=== PATIENT | male | born 1960 | race Caucasian/White ===

== ENCOUNTER 2024-10-08 15:36 | Emergency (ER) | payer MEDICAID, SELFPAY ==
[2024-10-08] VITALS (8 sets, daily range): BP systolic 123–201; BP diastolic 80–103; PULSE 58–83; RESP 14–18; TEMP 36.8–37.1; O2SAT 96–99; BMI 16.4
--- NOTE | 2024-10-08 15:54 | EDNOTE_ITS ---
ED Abdominal Pain RME/HPI General Chief Complaint: Abdominal Pain Stated complaint: ABDOMINAL PAIN Time seen by provider: 10/08/24 16:04 Arrival date/time: 10/08/24 15:36 RME / HPI RME / HPI narrative: 64 year old male with history of Hepatitis A and C ?, chronic pain on Methadone presents to the ED BIBA from home for evaluation of abdominal pain beginning yesterday. Described as burning in sensation located throughout, without radiat ion, rating as moderate. Reportedly over the last 24 hours (beginning at 07:00 AM yesterday 10/07/24) has taken ~ 1,200mg of Methadone due to the pain. No other associated symptoms reported. Denies fevers, chills, sweats. Denies chest pain, cough, shortness of breath. Denies vomiting, diarrhea, constipation. Denies dysuria, urinary frequency and urgency. Patient denies intentionally trying to harm himself. Related Data Previous Rx's ?Medication ?Instructions ?Recorded famotidine 40 mg tablet 40 mg PO BID #60 tabs ondansetron 4 mg disintegrating 4 mg PO TID PRN nausea and 10/08/24 tablet vomiting 30 days #10 tabs Allergies Allergy/AdvReac Type Severity Reaction Status Date / Time No Known Allergies Allergy Verified 10/08/24 16:02 Review of Systems Review of Systems Systems Reviewed: All systems reviewed, normal except as documented Past Medical History Past Medical History NEUROLOGIC: Negative Neurological Disorders CARDIAC: Negative Cardiac Disorders or Congestive Heart Failure RESPIRATORY: Negative Chronic Obstructive Pulmonary Disease (COPD) GASTROINTESTINAL: Negative Gastrointestinal Disorders GENITOURINARY: Negative Renal Disease MUSCULOSKELETAL: Negative Musculoskeletal Disorders ENT: Negative History of ENT Problems ENDOCRINE: Negative Diabetes Mellitus Type 1 or Diabetes Mellitus Type 2 Social History SMOKING STATUS: Former smoker ED Exam Narrative Physical exam: GENERAL APPEARANCE: alert and oriented x 4, well-developed, mild wasting, no acute distress HEENT: Normocephalic, atraumatic; pupils equal, round, reactive to light; EOMI; mucous membranes pink, moist; oropharynx clear NECK: Supple LUNGS: CTABL; no wheezes, no rales, no rhonchi HEART: Regular rate, regular rhythm; normal S1, S2; no murmurs ABDOMEN: non distended; normal BS; soft, no tenderness, no guarding, no rebound; no masses, no organomegaly, no hernia BACK: no CVA tenderness EXTREMITIES: atraumatic; no edema NEUROLOGIC: awake; alert and oriented x4; cranial nerves II-XII grossly intact; no focal sensory or motor deficits PSYCHIATRIC: appropriate mood and affect SKIN: warm, dry, normal color; no rashes Course Course Course Narrative: 1800: Patient signed out to Dr. Langford pending labs and final disposition. Quality Measures none Orders Category Date Time Status Access Developer NOW Care 10/08/24 16:04 Completed EKG (ED ONLY) *Do not use* NOW Care 10/08/24 16:04 Completed EKG (ED Only) Stat Exams 10/08/24 16:04 Ordered Alcohol, Blood Medical Stat Lab 10/08/24 16:35 Completed B-Type Natriuretic Peptide Stat Lab 10/08/24 16:35 Completed CBC Stat Lab 10/08/24 16:35 Completed Comprehensive Metabolic Panel Stat Lab 10/08/24 16:35 Completed Drug Screen,Urine Stat Lab 10/08/24 16:28 Completed Lactate (Lactic Acid) Stat Lab 10/08/24 16:35 Completed Lactic Acid, 3 HR Stat Lab 10/08/24 20:09 Completed Lipase Stat Lab 10/08/24 16:35 Completed Magnesium Stat Lab 10/08/24 16:35 Completed Troponin I Stat Lab 10/08/24 16:35 Completed UA, C/S IF [Urinalysis, C/S if Indicated] Stat Lab 10/08/24 16:28 Completed DiphenhydrAMINE INJ [Benadryl Inj] Med 10/08/24 19:31 Discontinued 50 mg IVP X1 STA Famotidine Inj [Pepcid Inj] Med 10/08/24 19:06 Discontinued 20 mg IVP X1 ONE Lidocaine 2% Viscous [Xylocaine 2% Viscous] Med 10/08/24 16:04 Discontinued 15 ml PO X1 ONE MethylPREDNISolone.* [SoluMEDROL Inj] Med 10/08/24 19:31 Discontinued 125 mg IVP X1 ONE Metoprolol Tartrate [Lopressor] Med 10/08/24 18:48 Discontinued 25 mg PO X1 ONE Ondansetron Inj [Zofran Inj] Med 10/08/24 19:06 Discontinued 4 mg IVP X1 ONE Pantoprazole Inj [Protonix Inj] Med 10/08/24 19:06 Discontinued 40 mg IVP X1 ONE Sodium Chloride 0.9% 1000 ml [Ns] 1,000 ml Med 10/08/24 16:52 Discontinued IV 999 mls/hr cloNIDine HCL [Catapres] Med 10/08/24 19:20 Discontinued 0.2 mg PO X1 ONE cloNIDine HCL [Catapres] Med 10/08/24 18:48 Discontinued 0.3 mg PO X1 ONE mg Hyd/Al Hyd/Bertha Susp [Maalox Susp] Med 10/08/24 16:04 Discontinued 30 ml PO X1 ONE Vital Signs Vital signs: Vital Signs Temperature 98.2 F 10/08/24 15:38 Pulse Rate 74 10/08/24 15:38 Respiratory Rate 16 10/08/24 15:38 Blood Pressure 180/83 H 10/08/24 15:38 Pulse Oximetry (%) 97 10/08/24 15:38 Oxygen Delivery Method Room Air 10/08/24 15:38 Pulse ox is 97% on room air which is adequate. Abdominal Pain MDM MDM Narrative MDM Narrative:: Shanelle Shaw am scribing for and in the presence of Dr. Pillai. Patient data External records reviewed:: EMS form Clinical information provided by:: patient and EMS Social determinants that could affect healthcare access:: none Patient has the following chronic illnesses:: Hepatitis A and C ?, chronic pain on Methadone How is presenting disease/condition affected by chronic disease/condition?: exacerbated by Evaluation data The following diagnostics were reviewed and interpreted by me:: lab results Lab and/or radiology exams considered but not ordered:: None Interpretation Summary: Labs pending during sign out Medications / Prescriptions Medications or Prescriptions considered but not ordered:: None Medication administrations:: Medication Administration History Discontinued Medications Al Hydrox/Mg Hydrox/Simethicone (Mg Hyd/Al Hyd/Bertha (Maalox Reg) Susp 30 Ml Udc) 30 ml PO X1 ONE Stop: 10/08/24 16:05 Last Admin: 10/08/24 16:19 Dose: 30 ml Documented By: DIANE Clonidine (Clonidine Hcl 0.1 Mg Tablet) 0.3 mg PO X1 ONE Stop: 10/08/24 18:49 Last Admin: 10/08/24 19:40 Dose: Not Given Documented By: DT Non-Admin Reason: Cancelled by Provider Clonidine (Clonidine Hcl 0.1 Mg Tablet) 0.2 mg PO X1 ONE Stop: 10/08/24 19:21 Last Admin: 10/08/24 19:41 Dose: 0.2 mg Documented By: DT Diphenhydramine HCl (Diphenhydramine Inj 50 Mg/Ml Vial) 50 mg IVP X1 STA Stop: 10/08/24 19:32 Last Admin: 10/08/24 19:34 Dose: 50 mg Documented By: DT Famotidine (Famotidine Inj 10 Mg/Ml Vial 2 Ml) 20 mg IVP X1 ONE Stop: 10/08/24 19:07 Last Admin: 10/08/24 19:27 Dose: 20 mg Documented By: MARCELA Sodium Chloride (Ns) 1,000 mls @ 999 mls/hr IV .Q1H1M ONE Stop: 10/08/24 17:52 Last Infusion: 10/08/24 18:49 Dose: Infused Documented By: Admin: 10/08/24 17:45 Dose: 999 mls/hr Documented By: BRIAN Lidocaine HCl (Lidocaine Viscous 2% 15 Ml Udc) 15 ml PO X1 ONE Stop: 10/08/24 16:05 Last Admin: 10/08/24 16:19 Dose: 15 ml Documented By: DIANE Methylprednisolone Sodium Succinate (Methylprednisolone Sod Succ 62.5 Mg/Ml 2ml Vial) 125 mg IVP X1 ONE Stop: 10/08/24 19:32 Last Admin: 10/08/24 19:35 Dose: 125 mg Documented By: MARCELA Metoprolol Tartrate (Metoprolol Tartrate 25 Mg Tablet) 25 mg PO X1 ONE Stop: 10/08/24 18:49 Last Admin: 10/08/24 19:30 Dose: 25 mg Documented By: MARCELA Ondansetron HCl (Ondansetron Inj 2 Mg/Ml Inj 2 Ml) 4 mg IVP X1 ONE; Protocol Stop: 10/08/24 19:07 Last Admin: 10/08/24 19:27 Dose: 4 mg Documented By: DT Pantoprazole Sodium (Pantoprazole Inj 40 Mg Vial) 40 mg IVP X1 ONE Stop: 10/08/24 19:07 Last Admin: 10/08/24 19:28 Dose: 40 mg Documented By: DT See above Consultations Consultation(s) initiated? (list below): No Diagnosis Differential diagnosis abdominal pain: abdominal pain and other (gastritis, overdose ) Most likely diagnosis given after review of the tests above:: Abdominal pain Admission Indicated Admission indicated?: not indicated Explain why admission is indicated or not indicated:: Signed out to Dr. Langford pending final disposition. Admission Request Was there a request for admission?: No Disposition Plan Disposition Plan: other (specify) (Signed out to Dr. Langford) Discharge Plan Prescriptions/Referrals Prescriptions/Med Rec: New famotidine 40 mg tablet 40 mg PO BID Qty: 60 0RF ondansetron 4 mg tablet,disintegrating 4 mg PO TID PRN (Reason: nausea and vomiting) 30 Days Qty: 10 0RF Referrals: No Primary/Family,Physician [Primary Care Provider] - In 1 week Problem List Clinical Impression: Abdominal pain, epigastric, Opiate overdose Patient/Caregiver Discharge Instructions Discharge Activity: activity as tolerated Education Materials: ED PEPTIC ULCER vs GASTRITIS Additional Instructions: Discharge instructions from Dr. Langford: ?After evaluation, your symptoms are due to stomach ulcer (see attached handout).? There is no emergency such as appendicitis needing emergent surgery. ?To help heal the ulcer, take Famotidine 40 mg twice daily for a week then as needed. ?Zofran for nausea/vomiting.? Clear liquid diet for 24 hours.? Then slowly advance diet as tolerated. ?Avoid food and beverages that can trigger and worsen ulcers.? See attached handout. ?See a private doctor on 10/10/2024 for recheck and further care. To make sure there is no other serious intra-abdominal condition, ask for help with more investigation not available here in the ER.? Such as EGD or scoping the stomach, colonoscopy or scoping the colon, and referral to see reproduction production manager. Ask to review all test results and official radiology reports, to make sure you receive all necessary follow-ups and monitoring. ?Seek immediate medical care with worsening or with any concerns. Print Language: [place]
[2024-10-08] MEDS: LIDOCAINE VISCOUS 2% 15 ML UDC PO (16:19)
[2024-10-08] MEDS: MG HYD/AL HYD/SIME (Maalox Reg) SUSP 30 ML UDC PO (16:19)
[2024-10-08 16:50] LABS: Collection Type, Urine Clean Catch
[2024-10-08 16:50] LABS: Lactate (Lactic Acid) 3.0 mMol/L (0.4-2.0)
[2024-10-08 16:53] LABS: Basophils # (Auto) 0.0 Thou/mm3 (0.0-0.2); Basophils % (Auto) 0 % (0-2.5); Eosinophils # (Auto) 0.0 Thou/mm3 (0.0-0.5); Eosinophils % (Auto) 0 % (0-10); Hematocrit 46.3 % (41.0-53.0); Hemoglobin 16.1 g/dL (13.5-16.0); Immature Granulocytes Auto 0.02 Thou/mm3 (0.00-0.00); Lymphocytes # (Auto) 1.0 Thou/mm3 (1.0-4.8); Lymphocytes % (Auto) 12 % (10-50); Mean Corpuscular HGB Conc 34.8 g/dl (31.0-37.0); Mean Corpuscular Hemoglobin 32.0 pg (25.0-35.0); Mean Corpuscular Volume 92 fL (80-100); Monocytes # (Auto) 0.7 Thou/mm3 (0.0-0.8); Monocytes % (Auto) 9 % (0-12); Neutrophils # (Auto) 6.6 Thou/mm3 (1.8-7.7); Neutrophils % (Auto) 79 % (37-80); Nucleated Red Blood Cell # 0.00 Thou/mm3 (0.00-0.00); Nucleated Red Blood Cell % 0 /100 WBC (0); Platelet Count 135 Thou/mm3 (140-440); RDW Standard Deviation 42.2 fL (35.1-43.9); Red Blood Count 5.03 Miln/mm3 (4.50-5.90); White Blood Count 8.4 Thou/mm3 (3.8-10.6)
[2024-10-08 16:58] LABS: Bacteria,Urine Rare; Bilirubin,Urine Negative (Negative); Blood,Urine Negative (Negative); Clarity,Urine Clear (Clear/Hazy); Color,Urine Lt-Yellow (Lt Yel-Yel); Culture Indicated,Urine Not Indicated; Glucose, Urine Negative (Negative); Ketones,Urine Trace (Negative); Leukocyte Esterase,Urine Positive (Negative); Nitrite,Urine Negative (Negative); PH,Urine 6.5 (5.0-7.0); Protein,Urine Trace (Neg - Trace); RBC,Urine 1 /hpf (0-3); Specific Gravity,Urine 1.015 (1.001-1.035); Squamous Epithelial Cell,Urine < 1 /hpf (0-5); Urobilinogen,Urine Negative mg/dL (0.0-1.0); WBC,Urine 1 /hpf (0-5)
[2024-10-08 17:17] LABS: B-Type Natriuretic Peptide 142 pg/mL (0-100)
[2024-10-08 17:25] LABS: Alanine Aminotransferase 17 U/L (10-49); Albumin, Serum 4.9 gm/dL (3.4-4.8); Albumin/Globulin Ratio 2.2 (1.2-2.2); Alcohol, Blood Medical < 3.0 mg/dL (0-10.0); Alkaline Phosphatase 69 U/L (46-116); Anion Gap 10 (7-16); Aspartate Amino Transferase 19 U/L (0-34); BUN/Creatinine Ratio 14 Ratio (12-20); Bilirubin,Total 0.7 mg/dL (0.3-1.2); Blood Urea Nitrogen 13 mg/dL (9-23); Calcium 9.7 mg/dL (8.3-10.6); Calcium (Corrected) 9.7 mg/dL (8.5-10.1); Carbon Dioxide 26.8 mMol/L (20.0-31.0); Chloride 98 mMol/L (98-107); Creatinine (Component) 0.9 mg/dL (0.6-1.3); Estimated Creatinine Clearance 59.0 mL/min (>60); Globulin 2.2 gm/dL (2.3-3.5); Glucose 104 mg/dL (74-106); Lipase 28 U/L (12-53); Magnesium 1.6 mg/dL (1.6-2.6); Osmolality,Calculated 270 (275-295); Potassium 3.6 mMol/L (3.4-5.1); Sodium 135 mMol/L (136-145); Total Protein 7.1 gm/dL (5.7-8.2); Troponin I < 0.020 ng/mL (0.0-0.045); eGFR > 60 See Note
[2024-10-08] MEDS: SODIUM CHLORIDE 0.9% 1000 ML 1,000 ML 999 ML IV (17:45)
--- NOTE | 2024-10-08 18:12 | EDNOTE_ITS ---
Emergency Room Addendum <Doris Griffiths - Last Filed: 10/08/24 20:25> Addendum Narrative: I took over the care from previous shift physician, Dr. Pillai, at 6 PM on 10/08/24. See previous notes for complete H & P and ED course. I reviewed all diagnostic test results. UDS positive for marijuana. Diagnoses include: stomach ulcer. Treatment here from me included Protonix, Pepcid, Zofran, Benadryl, Solumedrol, Metoprolol, and Clonidine. Discharge instructions from Dr. Langford: ?After evaluation, your symptoms are due to stomach ulcer (see attached handout).? There is no emergency such as appendicitis needing emergent surgery. ?To help heal the ulcer, take Famotidine 40 mg twice daily for a week then as needed. ?Zofran for nausea/vomiting.? Clear liquid diet for 24 hours.? Then slowly advance diet as tolerated. ?Avoid food and beverages that can trigger and worsen ulcers.? See attached handout. ?See a private doctor on 10/10/2024 for recheck and further care. To make sure there is no other serious intra-abdominal condition, ask for help with more investigation not available here in the ER.? Such as EGD or scoping the stomach, colonoscopy or scoping the colon, and referral to see technical administrative assistant. Ask to review all test results and official radiology reports, to make sure you receive all necessary follow-ups and monitoring. ?Seek immediate medical care with worsening or with any concerns. Juan Langford MD <Juan Langford MD - Last Filed: 10/09/24 02:23> Addendum Narrative: I took over the care from previous shift physician, Dr. Pillai, at 6 PM on 10/08. See previous notes for complete H & P and ED course. I reviewed all diagnostic test results. Diagnoses include: Gastritis and Elevated BP. Treatment here from me included Protonix, Pepcid, Zofran, Benadryl, Solumedrol, Metoprolol, and Clonidine. Benadryl and Solu-Medrol were given after Protonix when patient developed erythema and itching in the arm of the IV site. Significant improvement noted. Recommend outpatient management. Discharge instructions from Dr. Langford: ?After evaluation, your symptoms are due to stomach ulcer (see attached handout).? There is no emergency such as appendicitis needing emergent surgery. ?To help heal the ulcer, take Famotidine 40 mg twice daily for a week then as needed. ?Zofran for nausea/vomiting.? Clear liquid diet for 24 hours.? Then slowly advance diet as tolerated. ?Avoid food and beverages that can trigger and worsen ulcers.? See attached handout. ?See a private doctor on 10/10/2024 for recheck and further care. To make sure there is no other serious intra-abdominal condition, ask for help with more investigation not available here in the ER.? Such as EGD or scoping the stomach, colonoscopy or scoping the colon, and referral to see technical administrative assistant. Ask to review all test results and official radiology reports, to make sure you receive all necessary follow-ups and monitoring. ?Seek immediate medical care with worsening or with any concerns. Juan Langford MD
[2024-10-08 19:04] LABS: Amphetamine/Methamp Scrn,U Negative (Negative); Barbiturate Screen,Urine Negative (Negative); Benzodiazepines Screen,Urine Negative (Negative); Benzoylecgonine Screen, Ur Negative (Negative); Fentanyl Screen,Urine Negative (Negative); Opiate Screen,Urine Negative (Negative); THC Screen,Urine Positive (Negative)
[2024-10-08] MEDS: ONDANSETRON INJ 2 MG/ML INJ 2 ML 4 MG IVP (19:27)
[2024-10-08] MEDS: FAMOTIDINE INJ 10 MG/ML VIAL 2 ML 20 MG IVP (19:27)
[2024-10-08] MEDS: METOPROLOL TARTRATE 25 MG TABLET PO (19:30)
[2024-10-08] MEDS: MethylPREDNISolone SOD SUCC 62.5 MG/ML 2ML VIAL 125 MG IVP (19:35)
[2024-10-08 19:48] LABS: Reflex Lactate? Y
[2024-10-08 20:16] LABS: Lactic Acid, 3 HR 2.1 mMol/L (0.4-2.0)
--- NOTE | 2024-10-09 08:21 | PC.CC ---
Luz SWAIN was consulted by DONNA Keys for transportation back home for the patient. PANTOGRAPH MACHINE OPERATOR scheduled [facility] for the patient.
== END 2024-10-08 20:54 | disposition home or self-care (01) ==
PROVIDERS: Emergency Medicine; Emergency Provider Emergency Medicine
DX: T40.601A Poisoning by unspecified narcotics, accidental (unintentional), initial encounter (principal); K25.9 Gastric ulcer, unspecified as acute or chronic, without hemorrhage or perforation; R03.0 Elevated blood-pressure reading, without diagnosis of hypertension
CPT/HCPCS: 36415; 80053; 80307; 80320; 81001; 83605; 83690; 83735; 83880; 84484; 85025; 93005; 96361; 96374; 96375; 99283; J1200; J2405; J2470; J2919; J3490; J7030; A9270; G0480